=== PATIENT | male | born 1985 ===

== ENCOUNTER 2022-05-02 22:58 | Emergency (ER) | payer BC, SELFPAY ==
--- NOTE | 2022-05-03 00:55 | EDPHYS ---
Physician Documentation [facility] Name: Steven Chan Age: 37 yrs Sex: Male : 1985 Arrival Date: 05/02/2022 Time: 23:01 Bed IW1 Private MD: ED Physician Homer Alexander HPI: 05/03 00:47 This 37 yrs old Male presents to ER via Ambulatory with complaints of Leg Swelling. kb 00:52 The patient has not recently seen a physician. kb 00:52 the patient presents with a swollen area of the left medial ankle. Description: kb draining, erythematous, swollen. Onset: The symptoms/episode began/occurred 2 week(s) ago. Possible cause(s): unknown. Associated signs and symptoms: Pertinent positives: drainage, erythema, swelling. Modifying factors: the symptoms are alleviated by nothing, the symptoms are aggravated by nothing. Severity of symptoms: At their worst the symptoms were mild, moderate, in the emergency department the symptoms are unchanged. The patient has not experienced similar symptoms in the past. Pt reports he has had a wound to medial left ankle for about 2 weeks that is healing, but he has noticed swelling to his leg after work that doesn't go down right away. Reports wound was draining last week, but has cleared up now. Historical: - Allergies: 05/02 23:20 Iodine; kl - Home Meds: 23:20 None [Active]; kl - PMHx: 23:20 None; kl - PSHx: 23:20 None; kl - Immunization history:: Adult Immunizations up to date. - Social history:: Smoking status: Patient reports the use of cigarette tobacco products, smokes one pack cigarettes per day. ROS: 05/03 00:48 Constitutional: Negative for fever, chills, and weight loss. kb Skin: Positive for open wound with swelling and slight erythema. All other systems are negative. Exam: 00:48 Constitutional: This is a well developed, well nourished patient who is awake, alert, kb and in no acute distress. Head/Face: Normocephalic, atraumatic. ENT: Moist Mucous membranes Cardiovascular: Regular rate and rhythm with a normal S1 and S2. No gallops, murmurs, or rubs. No pulse deficits. Respiratory: Respirations even and unlabored. No increased work of breathing. Talking in full sentences Abdomen/GI: Soft, non-tender. No distention MS/ Extremity: Pulses equal, no cyanosis. Neurovascular intact. Full, normal range of motion. Neuro: Awake and alert, GCS 15, oriented to person, place, time, and situation. Moves all extremities. Normal gait. Psych: Awake, alert, with orientation to person, place and time. Behavior, mood, and affect are within normal limits. 00:48 Skin: small open wound, size of pencil eraser, to left medial ankle with swelling and slight erythema. . Vital Signs: 05/02 23:16 BP 131 / 70; Pulse 91; Resp 20; Temp 98.4; Pulse Ox 98% on R/A; Weight 111.13 kg (R); kl Height 6 ft. 1 in. (185.42 cm); Pain 0/10; 05/03 01:00 BP 120 / 66; Pulse 82; Resp 16; Temp 98.1(TE); Pulse Ox 100% on R/A; kl 05/02 23:16 Body Mass Index 32.32 (111.13 kg, 185.42 cm) kl MDM: 05/02 23:09 Patient medically screened. kb 05/03 00:52 Data reviewed: vital signs, nurses notes. Data interpreted: Pulse oximetry: on room air kb is 98 %. Interpretation: normal. Counseling: I had a detailed discussion with the patient and/or guardian regarding: the historical points, exam findings, and any diagnostic results supporting the discharge/admit diagnosis, radiology results, the need for outpatient follow up, a family practitioner, to return to the emergency department if symptoms worsen or persist or if there are any questions or concerns that arise at home. 05/02 23:19 Order name: US Extremity Venous Unilateral Ltd kb 05/02 23:20 Order name: Lower Extremity Artery Uni Ltd kb Administered Medications: No medications were administered Disposition Summary: 05/03/22 00:54 Discharge Ordered Location: Home kb Condition: Stable kb Diagnosis - Local infection of the skin and subcutaneous tissue, unspecified kb Followup: kb - With: Emergency Department - When: As needed - Reason: Worsening of condition Followup: kb - With: Private Physician - When: 2 - 3 days - Reason: Recheck today's complaints, Continuance of care, Re-evaluation by your physician Discharge Instructions: - Discharge Summary Sheet kb - Wound Infection, [id number] kb Forms: - Medication Reconciliation Form kb - Thank You Letter kb - Antibiotic Education kb - Prescription Opioid Use kb Prescriptions: - Cephalexin 500 mg Oral Capsule - take 1 capsule by ORAL route every 8 hours for 10 days; 30 capsule; Refills: 0, kb Product Selection Permitted - Doxycycline Hyclate 100 mg Oral Tablet - take 1 tablet by ORAL route every 12 hours; 20 tablet; Refills: 0, Product kb Selection Permitted Signatures: Dispatcher [employer] Brynn Goodman, VEGETABLE TIER-C VEGETABLE TIER-Simona Barker, RN RN kl
--- NOTE | 2022-05-03 00:55 | ER ---
Nurse's Notes [facility] Name: Steven Chan Age: 37 yrs Sex: Male : 1985 Arrival Date: 05/02/2022 Time: 23:01 Bed IW1 Private MD: Diagnosis: Local infection of the skin and subcutaneous tissue, unspecified Presentation: 05/02 23:16 Chief complaint: Patient states: left inner ankle swelling wound to left inner ankle no kl active drainage pt reports swelling off and on x 2 weeks. Coronavirus screen: Vaccine status: Patient reports being unvaccinated. Ebola Screen: Patient negative for fever greater than or equal to 101.5 degrees Fahrenheit, and additional compatible Ebola Virus Disease symptoms. Initial Sepsis Screen: Does the patient meet any 2 criteria? No. Patient's initial sepsis screen is negative. Does the patient have a suspected source of infection? No. Patient's initial sepsis screen is negative. Risk Assessment: Do you want to hurt yourself or someone else? Patient reports no desire to harm self or others. 23:16 Method Of Arrival: Ambulatory 23:16 Acuity: JENA 3 05/03 01:02 Onset of symptoms was March 13, 2022. Triage Assessment: 05/02 23:19 General: Appears in no apparent distress. comfortable, Behavior is calm, cooperative. Pain: Complains of pain in left inner ankle. Historical: - Allergies: 23:20 Iodine; kl - Home Meds: 23:20 None [Active]; kl - PMHx: 23:20 None; kl - PSHx: 23:20 None; kl - Immunization history:: Adult Immunizations up to date. - Social history:: Smoking status: Patient reports the use of cigarette tobacco products, smokes one pack cigarettes per day. Screenin/05 01:01 [facility] ED Fall Risk Assessment (Adult) History of falling in the last 3 months, including since admission No falls in past 3 months (0 pts) Confusion or Disorientation No (0 pts) Intoxicated or Sedated No (0 pts) Impaired Gait No (0 pts) Mobility Assist Device Used No (0 pt) Altered Elimination No (0 pt) Score/Fall Risk Level 0 - 2 = Low Risk Oriented to surroundings, Educated pt \T\ family on fall prevention, incl call for assistance when getting out of bed, Hourly rounding (assess needs \T\ fall precautionary measures) done. 01:02 Abuse screen: Denies threats or abuse. Nutritional screening: No deficits noted. Tuberculosis screening: No symptoms or risk factors identified. Assessment: 00:00 Reassessment: Patient appears in no apparent distress at this time. Patient and/or kl family updated on plan of care and expected duration. Pain level reassessed. Patient is alert, oriented x 3, equal unlabored respirations, skin warm/dry/pink. Vital Signs: 05/02 23:16 BP 131 / 70; Pulse 91; Resp 20; Temp 98.4; Pulse Ox 98% on R/A; Weight 111.13 kg (R); kl Height 6 ft. 1 in. (185.42 cm); Pain 0/10; 05/03 01:00 BP 120 / 66; Pulse 82; Resp 16; Temp 98.1(TE); Pulse Ox 100% on R/A; kl 05/02 23:16 Body Mass Index 32.32 (111.13 kg, 185.42 cm) ED Course: 05/02 23:01 Patient arrived in ED. [id number] 23:09 Brynn Bergeron FNP-C is [facility]. kb 23:09 Homer Alexander MD is Attending Physician. kb 23:19 Triage completed. 05/03 00:45 US Extremity Venous Unilateral Ltd In Process Unspecified. EDMS 00:45 Lower Extremity Artery Uni Ltd US In Process Unspecified. EDMS 01:02 Patient has correct armband on for positive identification. 01:02 Patient notified of wait time. 01:02 No provider procedures requiring assistance completed. Patient did not have IV access kl during this emergency room visit. Administered Medications: No medications were administered Medication: 01:01 VIS not applicable for this client. Outcome: 00:54 Discharge ordered by . kb 01:02 Discharged to home ambulatory, with friend. 01:02 Condition: stable 01:02 Discharge instructions given to patient, Instructed on discharge instructions, follow up and referral plans. medication usage, Demonstrated understanding of instructions, follow-up care, medications, Prescriptions given X 2. 01:03 Patient left the ED. Signatures: Dispatcher [employer] EDUT Brynn Bergeron FNP-C FNP-Ckb Lewis, Kimberly, RN RN Ami Garcia [email or web address]
[2022-05-03 01:13] VITALS: BP 120/66; TEMP 98.1; O2SAT 100
--- NOTE | 2022-05-03 16:34 | RAD REPORT ---
EXAM DESCRIPTION: US - Lower Extremity Artery Uni Ltd - 05/03/2022 12:44 am CLINICAL HISTORY: 37 years, Male, PAIN COMPARISON: None FINDINGS: Multiple grayscale images and duplex Doppler ultrasound of the left lower extremity arteri al system was performed with color flow, spectral waveform and peak systolic velocities. There is no significant occlusion left lower activity. Left common femoral artery peak systolic velocity of 141 cm/sec. Left superficial femoral artery proximal peak systolic velocity 123 cm/sec. Left superficial femoral artery mid aspect peak systolic velocity of 110 cm/sec. Left superficial femoral artery distally peak systolic velocity of 121 cm/sec. Left popliteal artery peak systolic velocity of 72 cm/sec. Left posterior tibial artery peak systolic velocity of 51 cm/sec. Left dorsalis pedis artery peak systolic velocity of 69 cm/sec. There is triphasic waveform throughout. IMPRESSION: No evidence of significant left lower extremity arterial disease. Electronically signed by: Steven Wheeler MD 05/03/2022 12:56 AM SOCIAL CONTACT WORKER Due to temporary technical issues with the PACS/Fluency reporting system, reports are being signed by the in house radiologists without review as a courtesy to insure prompt reporting. The interpreting radiologist is fully responsible for the content of the report.
--- NOTE | 2022-05-03 16:36 | RAD REPORT ---
EXAM DESCRIPTION: US - Extremity Venous Uni Ltd - 05/03/2022 12:44 am CLINICAL HISTORY: 37 years, Male, Pain COMPARISON: None. FINDINGS: Multiple grayscale images as well as duplex Doppler ultrasound (color and spectral analysi s) of the left lower extremity were performed. Left common femoral vein, superficial femoral vein, left popliteal vein, left posterior tibial veins at the level of the calf and ankle were imaged. Spectral waveform demonstrate normal compressibilit y, phasicity and augmentation. No intraluminal defects were seen. IMPRESSION: No sonographic evidence of left lower extremity deep venous thrombosis. Electronically signed by: Steven Wheeler MD 05/03/2022 12:54 AM AUTOMOTIVE TIRE WORKER Due to temporary technical issues with the PACS/Fluency reporting system, reports are being signed by the in house radiologists without review as a courtesy to insure prompt reporting. The interpreting radiologist is fully responsible for the content of the report.
== END 2022-05-03 01:03 | disposition home or self-care (01) ==
LOC: ER 22:58
DX: L08.9 Local infection of the skin and subcutaneous tissue, unspecified (principal); F17.210 Nicotine dependence, cigarettes, uncomplicated
CPT/HCPCS: 93926; 93971; 99283